=== PATIENT | male | born 1980 | race Caucasian/White ===

== ENCOUNTER 2020-11-20 15:19 | Outpatient (CLI) | payer SELFPAY | END 2020-11-20 19:23 | disposition home or self-care (01) | PROVIDERS: PCP Pediatrics; Visit Provider Nurse Practitioner Family | DX: Z02.4 Encounter for examination for driving license (principal) ==

== ENCOUNTER → 2022-10-25 08:01 | Outpatient (CLI) | payer SELFPAY | PROVIDERS: PCP Pediatrics; Visit Provider Nurse Practitioner Family | DX: Z02.4 Encounter for examination for driving license (principal) ==